=== PATIENT | female | born 1950 | race Caucasian/White ===

== ENCOUNTER 2022-06-06 15:09 | Emergency (ER) | payer OTHER, MEDICARE ==
[2022-06-06] VITALS (7 sets, daily range): BP systolic 125–158; BP diastolic 63–77
[~2022-06-06] VITALS: Ht 157.5 cm; Wt 63.6 kg
[~2022-06-06 15:09] MED LIST: ASPIRIN LOW81 M1 PO; CENTRUM SILVER ULTRA PO; ECHINACEA125 MG PO; FENOFIBRATE54 MG PO; LOPID600 MG PO; MULTI FOR HER 50+ PO; PRAVASTATIN10 MG PO; PRAVASTATIN20 MG PO; TRICOR48 MG PO
[2022-06-06] MEDS ORDERED: FENOFIBRATE145 MG PO (15:36)
[2022-06-06] MEDS ORDERED: LISINOPRIL10 MG PO (15:36)
[2022-06-06] MEDS ORDERED: LIPITOR20 M1 PO (15:37)
[2022-06-06] MEDS ORDERED: ASPIRIN81 MG PO (15:37)
[2022-06-06] MEDS ORDERED: METHIMAZOLE10 MG PO (15:38)
[2022-06-06] MEDS ORDERED: SELENIUM200 MC3 (15:38)
[2022-06-06] MEDS ORDERED: NAPROXEN500 MG PO (16:12)
== END 2022-06-06 16:30 | disposition home or self-care (01) | DRG 605 ==
LOC: ED 15:09
DX: S51.811A Laceration without foreign body of right forearm, initial encounter (principal); S51.812A Laceration without foreign body of left forearm, initial encounter; S60.212A Contusion of left wrist, initial encounter; I10 Essential (primary) hypertension; E78.5 Hyperlipidemia, unspecified; V59.40XA Driver of pick-up truck or van injured in collision with unspecified motor vehicles in traffic accident, initial encounter; W22.11XA Striking against or struck by driver side automobile airbag, initial encounter

== ENCOUNTER 2022-06-06 19:56 | Emergency (ER) | payer OTHER, MEDICARE ==
[~2022-06-06] VITALS: Ht 157.5 cm; Wt 60.0 kg
[~2022-06-06 19:56] MED LIST changes: +ASPIRIN81 MG PO; +FENOFIBRATE145 MG PO; +LIPITOR20 M1 PO; +LISINOPRIL10 MG PO; +METHIMAZOLE10 MG PO; +NAPROXEN500 MG PO; +SELENIUM200 MC3
[2022-06-06 20:18] VITALS: BP 118/68
== END 2022-06-06 20:29 | disposition home or self-care (01) | DRG 605 ==
LOC: ED 19:56
DX: S51.812A Laceration without foreign body of left forearm, initial encounter (principal); S51.811A Laceration without foreign body of right forearm, initial encounter; V59.40XA Driver of pick-up truck or van injured in collision with unspecified motor vehicles in traffic accident, initial encounter

== ENCOUNTER 2024-11-19 12:50 | Emergency (ER) | payer MEDICARE ==
[2024-11-19] VITALS (19 sets, daily range): BP systolic 95–140; BP diastolic 40–67
[~2024-11-19] VITALS: Ht 160 cm; Wt 45.8 kg
[~2024-11-19 12:50] MED LIST changes: +ATORVASTATIN CA80 MG PO; +D350 MCG PO
[2024-11-19 14:16] LABS: EOS% 1.3 % (0-8); IMMATURE GRANULOCYTES 0.2 % (0.0-5.0); LYMPH% 17.5 % (15-41); MEAN CELL VOLUME 89.9 fL CALC (80.0-100.0); MEAN CORPUSCULAR HGB 29.2 pG CALC (26.0-32.0); MEAN CORPUSCULAR HGB CONC 32.5 g/dL CAL (32.0-36.0); MONO% 7.4 % (2-13); NEUT# 4.55 thou/uL (2.00-7.15); NEUT% 73.6 % (42-76); RED BLOOD COUNT 3.56 mill/uL (4.20-5.60); RED CELL DISTRI WIDTH 12.4 % (11.5-15.5)
[2024-11-19 14:24] LABS: ALKALINE PHOSPHATASE 32 u/l (38-126); ANION GAP 8 (6-22 (CALC)); CARBON DIOXIDE 29 mmol/l (22-30); CHLORIDE 107 mmol/l (95-108); CREATININE 0.8 mg/dL (0.5-1.0); ESTIMATED GFR 78 ML/MIN (>=90 (CALC)); POTASSIUM 3.8 mmol/l (3.5-5.1); SGOT/AST 31 u/l (9-36); SODIUM 139 mmol/l (137-146); TOTAL PROTEIN 5.9 g/dL (6.3-8.2)
[2024-11-19 14:26] LABS: ALBUMIN 3.5 g/dL (3.2-5.0); BILIRUBIN, TOTAL 0.4 mg/dL (0.02-1.3); BUN 50 mg/dL (8-23); BUN/CREATININE RATIO 63 (12-20 (CALC))
[2024-11-19 14:54] LABS: HEMOGLOBIN 10.4 g/dl (12.0-16.0)
[2024-11-19 15:09] LABS: URINE BILIRUBIN - DIPSTICK Negative (NEGATIVE); URINE BLOOD DIPSTICK Negative (NEGATIVE); URINE GLUCOSE - DIPSTICK Negative (NEGATIVE); URINE KETONE Negative (NEGATIVE); URINE LEUK ESTERASE Trace (NEGATIVE); URINE NITRITE - DIPSTICK Negative (Negative); URINE PROTEIN - DIPSTICK Negative (NEG-TRACE); URINE UROBILINOGEN - DIPSTICK 0.2 E.U./dL (0.2)
[2024-11-19 15:12] LABS: URINE COLOR Yellow
[2024-11-19] MEDS ORDERED: FUROSEMIDE 40 MG/4 ML SDV IV ONE (16:45)
[2024-11-19] MEDS ORDERED: LASIX20 MG PO (17:19)
== END 2024-11-19 17:52 | disposition home or self-care (01) ==
LOC: ED 12:50 → ED-I 15:45 → ED 15:45 → ED-I 15:55 → ED 17:52
PROVIDERS: Nurse Practitioner
DX: R60.0 Localized edema (principal); E78.5 Hyperlipidemia, unspecified; F30.9 Manic episode, unspecified; M79.89 Other specified soft tissue disorders
CPT/HCPCS: J1940

== ENCOUNTER 2024-11-23 06:58 | Emergency (ER) | payer MEDICARE ==
[2024-11-23] VITALS (7 sets, daily range): BP systolic 94–124; BP diastolic 41–62
[~2024-11-23] VITALS: Ht 160 cm; Wt 49.0 kg
[~2024-11-23 06:58] MED LIST changes: +LASIX20 MG PO
[2024-11-23 07:32] LABS: BASO% 0.1 % (0-3); EOS% 1.4 % (0-8); HEMATOCRIT 31.6 % (37.0-47.0); HEMOGLOBIN 10.2 g/dl (12.0-16.0); IMMATURE GRANULOCYTES 0.3 % (0.0-5.0); LYMPH% 19.9 % (15-41); MEAN CELL VOLUME 88.5 fL CALC (80.0-100.0); MEAN CORPUSCULAR HGB 28.6 pG CALC (26.0-32.0); MEAN CORPUSCULAR HGB CONC 32.3 g/dL CAL (32.0-36.0); MONO% 8.1 % (2-13); NEUT# 5.1 thou/uL (2.00-7.15); NEUT% 70.2 % (42-76); RED BLOOD COUNT 3.57 mill/uL (4.20-5.60); RED CELL DISTRI WIDTH 12.3 % (11.5-15.5)
[2024-11-23 07:52] LABS: ALBUMIN 3.7 g/dL (3.2-5.0); CREATININE 1.5 mg/dL (0.5-1.0); POTASSIUM 3.5 mmol/l (3.5-5.1); TOTAL PROTEIN 6.2 g/dL (6.3-8.2)
[2024-11-23 07:58] LABS: BILIRUBIN, TOTAL 0.7 mg/dL (0.02-1.3)
[2024-11-23 08:12] LABS: URINE BILIRUBIN - DIPSTICK Negative (NEGATIVE); URINE BLOOD DIPSTICK Negative (NEGATIVE); URINE GLUCOSE - DIPSTICK Negative (NEGATIVE); URINE KETONE Negative (NEGATIVE); URINE LEUK ESTERASE Trace (NEGATIVE); URINE NITRITE - DIPSTICK Negative (Negative); URINE PROTEIN - DIPSTICK Negative (NEG-TRACE); URINE SPECIFIC GRAVITY 1.015; URINE UROBILINOGEN - DIPSTICK 0.2 E.U./dL (0.2)
[2024-11-23 08:13] LABS: URINE COLOR Yellow
== END 2024-11-23 09:25 | disposition home or self-care (01) ==
LOC: ED 06:58
PROVIDERS: Family Medicine
DX: F03.90 Unspecified dementia, unspecified severity, without behavioral disturbance, psychotic disturbance, mood disturbance, and anxiety (principal); Z91.83 Wandering in diseases classified elsewhere

== ENCOUNTER 2024-12-25 11:08 | Emergency (ER) | payer MEDICARE ==
[2024-12-25] VITALS (10 sets, daily range): BP systolic 108–134; BP diastolic 55–70
[~2024-12-25] VITALS: Ht 160 cm; Wt 65.0 kg
[2024-12-25] MEDS ORDERED: MEMANTINE HYDRO10 MG (11:26)
[2024-12-25] MEDS ORDERED: DEPAKOTE ER250 M1 (11:27)
[2024-12-25 12:46] LABS: URINE BILIRUBIN - DIPSTICK Negative (NEGATIVE); URINE BLOOD DIPSTICK Negative (NEGATIVE); URINE GLUCOSE - DIPSTICK Negative (NEGATIVE); URINE KETONE Negative (NEGATIVE); URINE NITRITE - DIPSTICK Negative (Negative); URINE PH 6.5 (4.5-8.0); URINE PROTEIN - DIPSTICK Negative (NEG-TRACE); URINE SPECIFIC GRAVITY 1.015; URINE UROBILINOGEN - DIPSTICK 0.2 E.U./dL (0.2)
[2024-12-25 12:47] LABS: BASO% 0.1 % (0-3); EOS% 0.6 % (0-8); HEMATOCRIT 31.7 % (37.0-47.0); IMMATURE GRANULOCYTES 0.1 % (0.0-5.0); LYMPH% 13.3 % (15-41); MEAN CELL VOLUME 92.4 fL CALC (80.0-100.0); MEAN CORPUSCULAR HGB 29.2 pG CALC (26.0-32.0); MEAN CORPUSCULAR HGB CONC 31.5 g/dL CAL (32.0-36.0); MONO% 8.3 % (2-13); NEUT# 6.45 thou/uL (2.00-7.15); NEUT% 77.6 % (42-76); RED BLOOD COUNT 3.43 mill/uL (4.20-5.60); RED CELL DISTRI WIDTH 14.2 % (11.5-15.5)
[2024-12-25 12:50] LABS: URINE BACTERIA FEW hpf; URINE COLOR Yellow; URINE EPITHELIAL CELLS FEW EPI/hpf (0-FEW); URINE LEUK ESTERASE Small (NEGATIVE)
[2024-12-25 13:05] LABS: ALBUMIN 3.5 g/dL (3.2-5.0); ALKALINE PHOSPHATASE 31 u/l (38-126); ANION GAP 8 (6-22 (CALC)); BILIRUBIN, TOTAL 0.5 mg/dL (0.02-1.3); CARBON DIOXIDE 31 mmol/l (22-30); CHLORIDE 107 mmol/l (95-108); CREATININE 0.9 mg/dL (0.5-1.0); ESTIMATED GFR 68 ML/MIN (>=90 (CALC)); MAGNESIUM 2.1 mg/dL (1.6-2.3); POTASSIUM 3.8 mmol/l (3.5-5.1); SGOT/AST 43 u/l (9-36); SODIUM 142 mmol/l (137-146); TOTAL PROTEIN 6.1 g/dL (6.3-8.2)
[2024-12-25 13:06] LABS: BUN 33 mg/dL (8-23); BUN/CREATININE RATIO 37 (12-20 (CALC))
== END 2024-12-25 13:52 | disposition home or self-care (01) ==
LOC: ED 11:08
PROVIDERS: Family Medicine
DX: F03.90 Unspecified dementia, unspecified severity, without behavioral disturbance, psychotic disturbance, mood disturbance, and anxiety (principal)